=== PATIENT | female | born 1970 | race Caucasian/White ===

== ENCOUNTER 2016-09-21 10:18 | Inpatient (IN) ==
[2016-09-21] MEDS ORDERED: NS 1,000 ML IV ONE ×2 (10:46→15:40)
--- NOTE | 2016-09-21 11:07 | Diag Imaging Result Doc PS360 ---
EXAM: CHEST-PORTABLE HISTORY: AMS TECHNIQUE: AP portable at 1100 COMMENT: The inspiration is suboptimal. Considering the degree of inspiration and technical differences there is been no significant change since 09/12/2013. IMPRESSION: No acute disease. Electronically signed by Jesse Santos 09/21/2016 11:05 AM
[2016-09-21 11:11] LABS: ALLEN TEST YES; BE -3.5 mmoll (-3.0-3.0); BLOOD TYPE ARTERIAL; DRAW SITE R RADIAL; METHB 1.2 % (0.0-1.5); O2(CT) 17.1 mL/dL (15.0-23.0); PCO2(98.6) 41 mmHg (35-45); PO2(98.6) 93 mmHg (60-100); SAMPLE BLOOD; SAO2 98.7 % (95.0-100.0); THB 12.6 g/dL (11.5-17.4); pH(98.6) 7.34 (7.35-7.45)
[2016-09-21 11:12] LABS: MODALITY CANNULA
[2016-09-21 11:12] LABS: BASO% 0.1 % (0.0-0.8); EOS# 0.02 X1000 (0.0-0.7); EOS% 0.2 % (0.0-10.0); HEMATOCRIT 38.7 % (37.0-47.0); HEMOGLOBIN 12.9 g/dL (12.0-16.0); IMM GRAN# 0.02 X1000 (0.0-0.04); IMM GRAN% 0.2 % (0.0-0.5); LYMPH# 0.79 X1000 (1.2-3.4); LYMPH% 8.5 % (20.5-51.1); MANUAL DIFF NEEDED? NO; MCH 30.5 PG (27-31); MCHC 33.3 g/dL (33-37); MCV 91.5 FL (81-99); MONO# 0.36 X1000 (0.11-0.59); MONO% 3.9 % (1.7-9.3); MPV 11.5 FL (7.4-10.4); NEUT% 87.1 % (42.2-75.2); PLT 228 X1000 (130-400); RBC 4.23 XMIL (4.2-5.4)
[2016-09-21 11:18] LABS: PROTIME 10.5 Seconds (9.2-11.7); PTT 22.2 Seconds (22.0-36.0)
[2016-09-21 11:30] LABS: AGAP 18; ALBUMIN 4.3 g/dL (3.5-5.0); ALKALINE PHOSPHATASE 72 U/L (32-104); BUN 11 mg/dL (8-22); CALCIUM 8.9 mg/dL (8.8-10.2); CHLORIDE 101 mmol/L (98-107); CK PROFILE 80 U/L (24-173); COSMO 280; GOT 16 U/L (10-30); GPT 18 U/L (10-36); POTASSIUM 3.8 mmol/L (3.5-5.1); SODIUM 138 mmol/L (136-145); TCO2 19 mmol/L (25-35); TOTAL BILIRUBIN 0.21 mg/dL (0.20-1.00); TOTAL PROTEIN 7.1 g/dL (6.3-8.3)
[2016-09-21 11:56] LABS: URINE CULTURE NEEDED? NO; URINE MICRO REVIEW NEEDED? NO; URINE SOURCE CATH
[2016-09-21 12:06] LABS: BILIRUBIN URINE NEGATIVE (NEGATIVE); BLOOD URINE NEGATIVE (NEGATIVE); COLOR YELLOW; GLUCOSE URINE NEGATIVE (NEGATIVE); LEUKOCYTES URINE NEGATIVE (NEGATIVE); NITRITE URINE NEGATIVE (NEGATIVE); PROTEIN URINE NEGATIVE (NEGATIVE); SP GRAVITY URINE 1.015; TURBIDITY URINE CLEAR (CLEAR); UROBILINOGEN URINE NORMAL (NORMAL)
[2016-09-21 12:08] LABS: UR EPITHELIAL CELLS <10 /HPF (<10); URINE BACTERIA NEGATIVE /HPF; URINE RBC <10 /HPF (<10); URINE WBC <10 /HPF (<10)
[2016-09-21 13:01] LABS: UR AMPHETAMINES QUAL NONE DETECTED (NONE DETECT); UR BARBITUATES QUAL NONE DETECTED (NONE DETECT); UR BENZODIAZEPIN QUAL PRESUMPTIVE POSITIVE (NONE DETECT); UR CANNABINOIDS QUAL NONE DETECTED (NONE DETECT); UR COCAINE QUAL NONE DETECTED (NONE DETECT); UR METHADONE QUAL NONE DETECTED (NONE DETECT); UR OPIATES QUAL NONE DETECTED (NONE DETECT); UR OXYCODONE QUAL NONE DETECTED (NONE DETECT); UR PCP QUAL NONE DETECTED (NONE DETECT)
--- NOTE | 2016-09-21 13:33 | PROVIDER DOCUMENTATION ---
This chart was entered by Debbi Wallace Scribe, acting as scribe for Eloy Bowie MD. HPI-General Adult - General Chief Complaint: Altered Mental Status Stated Complaint: POSS OD Time Seen by Provider: 09/21/16 10:44 Source: patient Allergies/Adverse Reactions: Patient Allergies Allergy/AdvReac Type Severity Reaction Status Date / Time No Known Allergies Allergy Verified 09/21/16 11:09 Home Medications: Home Medication List Medication Instructions Recorded Confirmed Last Taken Type Metoprolol [Lopressor] 25 mg PO DAILY 02/09/15 09/21/16 02/08/15 07:00 History 25 MG Atorvastatin Calcium [Atorvastatin 80 mg PO QHS 09/21/16 09/21/16 Unknown History Calcium] Baclofen [Baclofen] 10 mg PO TID 09/21/16 09/21/16 Unknown History Cholecalciferol (Vitamin D3) 2,000 unit PO DAILY 09/21/16 09/21/16 Unknown History [Vitamin D3] Escitalopram [Lexapro] 10 mg PO DAILY 09/21/16 09/21/16 Unknown History Gabapentin [Gabapentin] 300 mg PO BID 09/21/16 09/21/16 Unknown History Hydrochlorothiazide 12.5 mg PO DAILY 09/21/16 09/21/16 Unknown History [Hydrochlorothiazide] Lisinopril [Lisinopril] 40 mg PO DAILY 09/21/16 09/21/16 Unknown History Metformin HCl [Metformin HCl] 500 mg PO BID 09/21/16 09/21/16 Unknown History - History of Present Illness -Gen Adult Nature of Presenting Problems: Pt is a 45 year old female who came to the ED with a cc of altered mental status staring this morning. Pt reports the pt was not talking this morning and N/V. Pt has a hx of taking too many sleeping pills. But when Dr. Bowie asked the pt denies. Location of Pain/Injury: reports: none Pain Radiation: reports: no radiation Quality of Pain: reports: none Severity: reports: mild Onset/Duration: reports: this morning Timing: reports: still present Associated Symptoms: reports: nausea, vomiting Similar Symptoms Previously?: Yes Recently seen or treated by another doctor?: No Review of Systems - Adult - REVIEW OF SYSTEMS - ADULT Constitutional: denies: chills, fever Eyes: reports: no symptoms reported Ears, Nose, Mouth & Throat: reports: no symptoms reported Cardiovascular: reports: no symptoms reported Respiratory: denies: cough, shortness of breath Gastrointestinal: reports: nausea, vomiting. denies: difficulty swallowing, frequent heartburn Genitourinary: reports: no symptoms reported Musculoskeletal: reports: no symptoms reported Integumentary: reports: no symptoms reported Neurological: reports: no symptoms reported Psychiatric: reports: no symptoms reported Endocrine: reports: no symptoms reported Hematologic/Lymphatic: reports: no symptoms reported Allergic/Immunologic: reports: no symptoms reported All Other Systems: Reviewed and Negative Past History - Adult - PAST MEDICAL HISTORY-ADULT Review of Records: reports: Old Records Reviewed, Nursing Assessment Review Major Childhood Illnesses: reports: denies history Cardiovascular: reports: denies history, HTN Respiratory: reports: denies history Gastrointestinal: reports: denies history Obstetrical/Gynecological: reports: denies history Genitourinary: reports: denies history Musculoskeletal: reports: denies history Neurological: reports: denies history, other Psychiatric: reports: denies history Endocrine/Immune: reports: denies history Other Conditions: reports: denies history - PRIOR SURGERIES/PROCEDURES Surgical/Procedure History: reports: - IMMUNIZATION STATUS Childhood Immunizations: See Nurse Assessment Flu Vaccine: See Nurse Assessment - FAMILY HISTORY Family History: reviewed, not pertinent Physical Exam-General - PHYSICAL EXAM-ADULT Initial Vital Signs Reviewed: Yes - CONSTITUTIONAL General Appearance: appears well, alert, no apparent distress - EYES Eyes: PERRL/EOMI, pink conjunctivae - HEAD, EARS, NOSE, MOUTH & THROAT HENMT: normocephalic/atraumatic, moist mucous membranes - NECK Neck: non-tender, full range of motion - RESPIRATORY Respiratory: chest non-tender, lungs clear, normal breath sounds - CARDIOVASCULAR Cardiovascular: normal peripheral pulses, regular rate, rhythm - GASTROINTESTINAL (ABDOMEN) Abdominal Exam: normal bowel sounds, non tender, soft - MUSCULOSKELETAL Back Exam: normal inspection, no CVA tenderness Extremity: normal range of motion, non-tender, normal gait - SKIN Integumentary: normal color, normal turgor, warm/dry - NEUROLOGIC Neurologic: grossly normal - PSYCHIATRIC Psych/Mental Status: normal mood/affect, normal thought content, normal thought process, oriented x 3 Progress - PLAN OF CARE/RESULTS Progress/Plan/Lab Results: Vital Signs - 8 hr 09/21/16 10:24 09/21/16 11:29 Pulse Rate 108 H 77 Respiratory Rate 26 H 14 Blood Pressure 188/132 102/74 O2 Sat by Pulse Oximetry 100 100 Laboratory Results - last 24 hr 09/21/16 09/21/16 09/21/16 10:51 10:51 10:51 WBC 9.27 RBC 4.23 Hgb 12.9 Hct 38.7 MCV 91.5 MCH 30.5 MCHC 33.3 RDW Std Deviation 12.6 Plt Count 228 MPV 11.5 H Immature Gran % (Auto) 0.2 Neut % (Auto) 87.1 H Lymph % (Auto) 8.5 L Kidder % (Auto) 3.9 Eos % (Auto) 0.2 Baso % (Auto) 0.1 Immature Gran # (Auto) 0.02 Neut # (Auto) 8.07 H Lymph # (Auto) 0.79 L Kidder # (Auto) 0.36 Eos # (Auto) 0.02 Baso # (Auto) 0.01 PT INR PTT (Actin FS) Specimen Type Sample Site pH pCO2 pO2 HCO3 Base Excess Oxyhemoglobin ABG O2 Sat (Calculated) ABG O2 Saturation ABG Carboxyhemoglobin ABG Methemoglobin Zeke Test A-a O2 Difference Total Hemoglobin Lactate Liter Flow Blood Gas Modality FiO2 % Sodium 138 Potassium 3.8 Chloride 101 Carbon Dioxide 19 L Anion Gap 18 BUN 11 Creatinine 0.8 Estimated GFR/1.73 m2 > 60 BUN/Creatinine Ratio 14 Glucose 188 H Calculated Osmolality 280 Calcium 8.9 Total Bilirubin 0.21 AST 16 ALT 18 Alkaline Phosphatase 72 Creatine Kinase 80 Troponin T Total Protein 7.1 Albumin 4.3 Globulin 2.8 Albumin/Globulin Ratio 1.5 Plasma/Serum Ethyl Alc 09/21/16 09/21/16 09/21/16 10:51 10:51 11:00 WBC RBC Hgb Hct MCV MCH MCHC RDW Std Deviation Plt Count MPV Immature Gran % (Auto) Neut % (Auto) Lymph % (Auto) Kidder % (Auto) Eos % (Auto) Baso % (Auto) Immature Gran # (Auto) Neut # (Auto) Lymph # (Auto) Kidder # (Auto) Eos # (Auto) Baso # (Auto) PT 10.5 INR 1.00 PTT (Actin FS) 22.2 Specimen Type ARTERIAL Sample Site R RADIAL pH 7.34 L pCO2 41 pO2 93 HCO3 22.2 Base Excess -3.5 L Oxyhemoglobin 96.1 ABG O2 Sat (Calculated) 17.1 ABG O2 Saturation 98.7 ABG Carboxyhemoglobin 1.50 ABG Methemoglobin 1.2 Zeke Test YES A-a O2 Difference 55.0 Total Hemoglobin 12.6 Lactate 3.30 H Liter Flow 2.0 Blood Gas Modality CANNULA FiO2 % 28.0 Sodium Potassium Chloride Carbon Dioxide Anion Gap BUN Creatinine Estimated GFR/1.73 m2 BUN/Creatinine Ratio Glucose Calculated Osmolality Calcium Total Bilirubin AST ALT Alkaline Phosphatase Creatine Kinase Troponin T < 0.010 Total Protein Albumin Globulin Albumin/Globulin Ratio Plasma/Serum Ethyl Alc Orders Category Date Time Status Cardiac Monitoring DIRECTED Care 09/21/16 10:45 Active Finger Stick Blood Sugar (ED) DIRECTED Care 09/21/16 10:45 Active Arnold Cath Insertion ORDERED Care 09/21/16 10:46 Active Saline Loc NOW Care 09/21/16 10:45 Active CHEST-PORTABLE [RAD] Stat Exams 09/21/16 10:45 Completed ABG [RESP] Routine Lab 09/21/16 11:00 Completed ALCOHOL BLOOD Stat Lab 09/21/16 10:51 Completed CBC WITH ELECTRONIC DIFF [HEME] Stat Lab 09/21/16 10:51 Completed CK PROFILE [SP CHEM] Stat Lab 09/21/16 10:51 Completed COMPREHENSIVE METABOLIC PANEL [CHEM] Stat Lab 09/21/16 10:51 Completed LACTATE, PLASMA [CHEM] Stat Lab 09/21/16 10:53 Ordered PROTIME WITH INR [COAG] Stat Lab 09/21/16 10:51 Completed PTT [COAG] Stat Lab 09/21/16 10:51 Completed TROPONIN T Stat Lab 09/21/16 10:51 Completed URINALYSIS W/POSS RFLX CULT-1 [URINALYSIS] Stat Lab 09/21/16 10:45 Uncollected URINE DRUG SCREEN Stat Lab 09/21/16 10:45 Uncollected 0.9% Sodium Chloride Inj [Ns] 1,000 ml Med 09/21/16 10:46 Active IV 125 mls/hr Pulse Oximetry Stat Oth 09/21/16 10:45 Active EKG [EKG] Stat Ther 09/21/16 10:30 Ordered EKG [EKG] Stat Ther 09/21/16 10:45 Ordered Result Diagrams: 09/21/16 10:51 09/21/16 10:51 - REASSESSMENT Reassessment #2 Time Reassessed: 13:33 Status: unchanged (took an unknown number of her husbands xanax, some of her baclofen, and some OTC sleep aid) - CT/MRI 1 CT Study: Head (negative) - CONSULTS/PCP/HOSPITALIST Notification #1 *Consult/PCP/Hospitalist*: Dr Trevino Time Discussed: 13:37 Consult Disposition: Admit (benzo od) Departure - Departure Date of Disposition Decision: 09/21/16 Time of Disposition Decision: 13:38 DIAGNOSIS: Overdose of benzodiazepine Qualifiers: Encounter type: initial encounter Injury intent: accidental or unintentional Qualified Code(s): T42.4X1A - Poisoning by benzodiazepines, accidental ( unintentional), initial encounter Disposition: HOME 01 Certified Medical Emergency: Emergent Condition: Stable Referrals and Follow-Ups: Mick Gilbert [Primary Care Provider] - - Critical Care Note This patient required my direct & personal management of CC.: No Attestation - Physician/ JEET Attestation The physician spent face to face time with patient:: Yes Advanced Practice Provider documentation review:: Supervising physician onsite and consulted in the evaluation and care of this patient. The physician did have a face to face encounter with the patient. This chart was documented by the indicated scribe, (Debbi Wallace Scribe) and accurately reflects the services I performed and decisions made by me, Eloy Bowie MD, as attested by the provider's signature.
[2016-09-21 14:20] LABS: ACETAMINOPHEN < 1.2 ug/mL (10-30)
[2016-09-21 14:23] LABS: ACETONE SERUM NEGATIVE (NEGATIVE)
--- NOTE | 2016-09-21 15:17 | HISTORY AND PHYSICAL ---
CHIEF COMPLAINT: Altered mental status. HISTORY OF PRESENT ILLNESS: Ms. Neff is a 45-year-old female with a history of depression, anxiety, prescription drug abuse, hypertension, fibromyalgia and demyelinating disease who presents with altered mental status from home. Apparently last night the patient took 4 of her 's Xanax 1 mg pills on top of some type of sleeping medication and 4 baclofen. She was unresponsive this morning and brought to the ER. During the exam the patient woke up and was able to the briefly tell us that she is been having a longstanding history of insomnia and abuses medications at times because she cannot sleep and this is very frustrating for her. She took this medication last night and became altered. In the ER she had labs and diagnostics done, these are pretty much unremarkable with the exception of an elevated metabolic anion gap acidosis and lactic acidosis at 3.3. She did have a chest x-ray which was negative. We have ordered a head CT as well. She has no other real complaints except for dizziness at this time. She is going to be admitted for observation status. PAST MEDICAL HISTORY: 1. Insomnia. 2. Prescription drug abuse. 3. Hypertension. 4. Fibromyalgia. 5. Demyelinating disease, specificity unknown. 6. Type 2 diabetes. 7. Obesity. 8. Hyperlipidemia. PAST SURGICAL HISTORY: She has had x2 and a tummy tuck, she has had right knee arthroscopy and uterine ablation. SOCIAL HISTORY: The patient denies alcohol or tobacco use. She reports occasionally abusing prescription medication to help her sleep. She is , at the bedside. FAMILY HISTORY: Father from esophageal cancer. Mother is alive with asthma and hypertension. REVIEW OF SYSTEMS: Fourteen-point review of systems obtained and found to be negative with the exception of the HPI. HOME MEDICATIONS: Atorvastatin 80 mg at bedtime, baclofen 10 mg t.i.d., vitamin D 2000 units p.o. daily, Lexapro 10 mg daily, Neurontin 300 mg b.i.d. hydrochlorothiazide 12.5 mg p.o. daily, lisinopril 40 mg daily, metformin 500 mg b.i.d., Lopressor 25 mg daily. ALLERGIES: No known drug allergies. PHYSICAL EXAMINATION: VITAL SIGNS: Blood pressure is 102/74, heart rate 76, respiratory rate 17, O2 saturation 99% on room air, temperature not recorded. GENERAL: This is an overweight female lying in hospital bed slightly lethargic but in no acute distress. NEUROLOGIC: She opens her eyes to verbal stimulus and will converse appropriately, she is a bit foggy on the date but follows commands without focal deficits. HEENT: Head atraumatic and normocephalic. Her pupils are equal, round, and reactive to light. Oral mucosa is moist. Trachea is midline. There is no JVD. CHEST: Clear to auscultation bilaterally. CV: Regular rate and rhythm. S1-S2 is noted. No murmurs. GI: Soft, nondistended nontender. Bowel sounds positive. EXTREMITIES: Without edema, clubbing or cyanosis. Pulses 1+ bilaterally. DIAGNOSTIC DATA: Chest x-ray negative. WBC 9.27, hemoglobin 12.9, hematocrit 38.7, platelet count 228,00, INR 1. ABG on 2 L nasal cannula, pH 7.34, CO2 41, PO2 93, bicarb 22, lactic acid 3.3. Sodium 138, potassium 3.8, chloride 101, CO2 19, anion gap 18, BUN 11 , creatinine 0.8, glucose 188, calcium 8.9, LFTs within normal limits. Troponin negative, CK 80, albumin 4.3. UA is negative. Toxicology is negative for salicylates, acetaminophen, alcohol and acetone, drug screens positive for benzodiazepines. ASSESSMENT AND PLAN: 1. Toxic encephalopathy: Secondary to drug overdose. We are going to admit her to the floor with telemetry and monitor her overnight and if she is okay in the morning we are going to discharge her. We are going to check a head CT now withhold any of her mind altering substances and monitor her closely. Will also check an EKG to evaluate her QT interval. 2. Elevated anion gap metabolic acidosis: Likely secondary to lactic acidosis as other indices are negative. Will hydrate her and recheck a lactic acid. There is no white count, no tachycardia, no fever, no other signs of tissue hypoperfusion. 3. Hypertension: Will continue her Norvasc and hold her lisinopril hydrochlorothiazide for now as she is likely a bit volume depleted. 4. Type 2 diabetes: Will check hemoglobin A1c and add pattern sugars, sliding scale insulin. 5. Insomnia. Will add 25 mg of Seroquel at night. 6. Deep vein thrombosis prophylaxis with Lovenox. Further recommendations to follow. Dictated by LIANA Mckeon for Arnulfo Trevino MD cc: LIANA Mckeon MD I have seen and examined patient and I agree with the above evaluation and plan 1- Global encephalopathy likely due to prescription drugs 2-Headaches associated with NV and menses likely migraine. start Indomethacin and Phenergan and review in morning MTDD
--- NOTE | 2016-09-21 15:26 | Diag Imaging Result Doc PS360 ---
EXAM: HEAD W/O CONTRAST HISTORY: ams TECHNIQUE: CT of the head without contrast with reduced dose (clarity.) COMMENT: There is some abnormal lucency in the external capsule on the left. There is no evidence of mass effect, bleed, abnormal extra-axial fluid collection, or hydrocephalus. There are no previous studies. The visualized paranasal sinuses are clear with the exception of the right sphenoid sinus where there is some mucosal thickening. IMPRESSION: No evidence of acute intracranial disease. Chronic microvascular ischemic changes. Electronically signed by Jesse Santos 09/21/2016 3:23 PM
[2016-09-21] MEDS: HUMALOG SUBQ SCH ×2 (16:57→21:06)
[2016-09-21] MEDS ORDERED: PNEUMOVAX 23 IM ONE (17:15)
[2016-09-21] MEDS ORDERED: SODIUM CHLORIDE 0.9% INJ PRN (17:45)
[2016-09-21] MEDS: PHENERGAN IV PRN (18:18)
[2016-09-21] MEDS: NS 1,000 ML IV SCH (18:20)
[2016-09-21] MEDS: SEROQUEL PO SCH (21:06)
[2016-09-21] MEDS: PRILOSEC PO SCH (21:06)
[2016-09-21] MEDS: LIPITOR PO SCH (21:06)
[2016-09-21] MEDS: INDOCIN PO SCH (21:39)
[2016-09-22] MEDS: PHENERGAN IV PRN ×2 (01:20→21:11)
[2016-09-22 06:01] LABS: HEMOGLOBIN A1C 5.1 % (4.8-6.0)
[2016-09-22] MEDS: HUMALOG SUBQ SCH ×4 (06:06→21:52)
[2016-09-22 06:17] LABS: AGAP 9; BUN 9 mg/dL (8-22); CALCIUM 8.3 mg/dL (8.8-10.2); CHLORIDE 106 mmol/L (98-107); COSMO 280; POTASSIUM 3.9 mmol/L (3.5-5.1); SODIUM 141 mmol/L (136-145); TCO2 26 mmol/L (25-35)
[2016-09-22 06:49] LABS: HEMATOCRIT 32.7 % (37.0-47.0); HEMOGLOBIN 10.6 g/dL (12.0-16.0); MCH 30.5 PG (27-31); MCHC 32.4 g/dL (33-37); MPV 11.1 FL (7.4-10.4); RBC 3.48 XMIL (4.2-5.4)
[2016-09-22] MEDS: NS 1,000 ML IV SCH ×2 (09:43→17:23)
[2016-09-22] MEDS: PRILOSEC PO SCH ×2 (09:45→21:11)
[2016-09-22] MEDS: LEXAPRO PO SCH (09:45)
[2016-09-22] MEDS: INDOCIN PO SCH ×2 (09:45→21:54)
[2016-09-22] MEDS: VITAMIN D PO SCH (09:45)
[2016-09-22] MEDS: LOPRESSOR PO SCH (09:45)
[2016-09-22] MEDS: LOVENOX SUBQ SCH (09:49)
--- NOTE | 2016-09-22 14:09 | PROGRESS NOTE ---
DATE: 09/22/2016 SUBJECTIVE: Ms. Neff came in with altered mental status. She is a patient of Dr. Mick Gilbert 45-year-old with history of depression, anxiety, prescription drug abuse, hypertension, fibromyalgia and demyelinating disease presented altered mental status, apparently last night before patient took 4 of her 's Xanax and topped with some type of sleeping medication and 4 baclofen and was unresponsive the morning of admission. Exam she woke up and was able briefly tell long history of insomnia and abuse of medications, cannot sleep, she took the medication night before. PAST MEDICAL HISTORY: Once again 1. Insomnia. 2. Prescription drug abuse. 3. Hypertension. 4. Fibromyalgia. 5. Demyelinating disease specificity unknown. 6. Diabetes mellitus type 2. 7. Obesity. 8. Hyperlipidemia. 9. She has had a x2. 10. Tummy tuck. 11. Right knee arthroplasty. 12. Uterine ablation. She is better today more awake, she is asking for Ambien back, she wants to go back on her [place] because of her back pain. She states that she gets [place] 4 times a day at 7.5 mg a day. I do not see that on her home medications. I will put her back on her [place]. She still has a Arnold catheter in and she is getting some Seroquel at night for sleep. cc: Zeke Hall MD
[2016-09-22] MEDS: NORCO-7.5 PO PRN (21:10)
[2016-09-22] MEDS: LIPITOR PO SCH (21:11)
[2016-09-22] MEDS: SEROQUEL PO SCH (21:53)
[2016-09-23] MEDS: NORCO-7.5 PO PRN ×2 (03:43→10:17)
[2016-09-23] MEDS: HUMALOG SUBQ SCH (06:04)
--- NOTE | 2016-09-23 06:15 | EKG Report ---
Test Performed on : 09/21/2016 10:29:57 AM Test Reason : dizzy Blood Pressure : / mmHG Vent. Rate : 094 BPM Atrial Rate : 094 BPM P-R Int : 176 ms QRS Dur : 076 ms QT Int : 530 ms P-R-T Axes : 069 049 063 degrees QTc Int : 662 ms Normal sinus rhythm. Nonspecific ST and T wave abnormality Prolonged QT Abnormal ECG No previous ECGs available Unconfirmed Result
[2016-09-23 07:41] VITALS: BP 138/88
--- NOTE | 2016-09-23 09:41 | DISCHARGE SUMMARY ---
ADMISSION DATE: 09/21/2016 DISCHARGE DATE: 09/23/2016 HISTORY AND HOSPITAL COURSE: This is a 45-year-old with a history of depression and anxiety, prescription drug abuse, hypertension, fibromyalgia, demyelinating disease which presents with altered mental status. Apparently the night before admission, the patient took 4 of her 's Xanax 1 mg tablets on top of some sleeping medication and 4 baclofen, as she was unresponsive and brought to the emergency room. During the exam, patient woke up and was able to briefly tell us that she was having long-standing history of insomnia and was taking more of her medication than she was supposed to. She was admitted to the hospital on monitor and a Arnold catheter was placed. She woke up, was alert and oriented. She was eating without complication and wanted to go home on 09/23/2016. Monitor showed she remained in sinus tachycardia. She is followed at [facility] and I think she is [facility]. HOME MEDICATIONS: Best we could determine, she is on atorvastatin 80 mg at bedtime, baclofen 10 mg t.i.d. for muscle spasm. She is on vitamin D3 2000 units a day. Lexapro 10 mg a day. Gabapentin 300 mg b.i.d., hydrochlorothiazide 12.5 daily. Lisinopril 40 mg a day, metformin 500 mg b.i.d., metoprolol 25 mg a day. PLAN: We will discontinue her Arnold catheter and discharge her home. cc: Zeke Hall MD
[2016-09-23] MEDS: NS 1,000 ML IV SCH (09:53)
[2016-09-23] MEDS: VITAMIN D PO SCH (10:16)
[2016-09-23] MEDS: PRILOSEC PO SCH (10:16)
[2016-09-23] MEDS: INDOCIN PO SCH (10:16)
[2016-09-23] MEDS: LEXAPRO PO SCH (10:16)
[2016-09-23] MEDS: LOPRESSOR PO SCH (10:17)
[2016-09-23] MEDS: LOVENOX SUBQ SCH (10:17)
--- NOTE | 2016-11-15 16:57 | ED EKG INTERP ---
This chart was entered by Debbi Wallace Scribe, acting as scribe for Eloy Bowie MD. EKG Interpretation - EKG Time of EKG reading by physician:: 10:29 EKG Read and Signed by:: Eloy Bowie EKG Interpretation (*Must complete 3 of following elements*): Abnormal Rate: 94 (nonspecific ST and T wave abnormality; prolonged QT) Rhythm: NSR Attestation - Physician/ JEET Attestation The physician spent face to face time with patient:: Yes Advanced Practice Provider documentation review:: Supervising physician onsite and consulted in the evaluation and care of this patient. The physician did have a face to face encounter with the patient. This chart was documented by the indicated scribe, (Debbi Wallcae Scribe) and accurately reflects the services I performed and decisions made by me, Eloy Bowie MD, as attested by the provider's signature.
== END 2016-09-23 11:19 | disposition home or self-care (01) ==
LOC: ED 10:18 → 4N 14:14 → SUATTDRO 14:14
PROVIDERS: ATTEND Emergency Medicine